=== PATIENT | male | born 1955 ===

== ENCOUNTER 2018-01-09 01:55 | Emergency (ER) | payer BC ==
[2018-01-09 02:12] VITALS: BP 131/82; PULSE 75; RESP 16; TEMP 98.1; O2SAT 100
[2018-01-09] MEDS ORDERED: Sodium Chloride 0.9% 500 ML IV STA (03:00)
--- NOTE | 2018-01-09 03:32 | ED PDOC ---
HPI: Abdomen Time Seen by Provider: 01/09/18 02:15 Chief Complaint (Nursing): Abdominal Pain History Per: Patient History/Exam Limitations: no limitations Onset/Duration Of Symptoms: Days (x 4) Current Symptoms Are (Timing): Still Present Additional Complaint(s): 62-year-old male presents to ED complaining of abdominal pain for 4 days. Describes pain as intermittent with no alleviating or exacerbating factors. Patient states he had an endoscopy on December 09, which showed chronic gastritis and esophagitis. Patient reports he was tested for H. pylori, but tested (-). States endoscopy ordered initially by ENT doctor for throat discomfort since Pt has been having for few months. Endoscopy was normal by ENT doctor. States he did 3 different course of antibiotics with no improvement. Pt was recommended to obtain outpatient CT of heck neck, but patient has not done it yet. Pt reports GI doctor recommends obtaining CT of the [place] since Endoscopy did not yield any findings that could contribute to throat discomfort. Pt reports he does not suffer from prior abdominal conditions. Reports episode of vomiting tonight. Otherwise: (-) urinary symptoms, (-) diarrhea, (-) fever, (-) melena, (-) hematochezia. PMD: [facility] Past Medical History Reviewed: Historical Data, Nursing Documentation, Vital Signs Vital Signs: Last Vital Signs Temp 98.1 F 01/09/18 02:07 Pulse 75 01/09/18 02:07 Resp 16 01/09/18 02:07 BP 131/82 01/09/18 02:07 Pulse Ox 100 01/09/18 03:42 - Medical History PMH: No Chronic Diseases - Surgical History Surgical History: No Surg Hx - Family History Family History: States: Unknown Family Hx - Allergies Allergies/Adverse Reactions: Allergies Allergy/AdvReac Type Severity Reaction Status Date / Time No Known Allergies Allergy Verified 01/09/18 02:12 Review of Systems ROS Statement: Except As Marked, All Systems Reviewed And Found Negative Constitutional: Negative for: Fever ENT: Positive for: Other (Throat discomfort) Gastrointestinal: Positive for: Vomiting, Abdominal Pain. Negative for: Diarrhea, Melena, Hematochezia Genitourinary Male: Negative for: Dysuria, Hematuria Physical Exam - Reviewed Nursing Documentation Reviewed: Yes Vital Signs Reviewed: Yes - Physical Exam Comments: GENERAL APPEARANCE: Patient is awake, alert, oriented x 3, in mild painful distress. SKIN: Warm, dry; (-) cyanosis. EYES: (-) conjunctival pallor, (-) scleral icterus. ENMT: Mucous membranes are moist. NECK: (-) tenderness, (-) stiffness, (-) lymphadenopathy. CHEST AND RESPIRATORY: (-) rales, (-) rhonchi, (-) wheezes; breath sounds equal bilaterally. HEART AND CARDIOVASCULAR: (-) irregularity; (-) murmur, (-) gallop. ABDOMEN AND GI: (-) distention. Bowel sounds active; (-) tenderness, (-) guarding, (-) rebound, (-) palpable masses, (-) CVA tenderness. EXTREMITIES: (-) deformity, (-) edema, (+) distal pulses. NEURO AND PSYCH: Mental status as above; (-) focal findings. - Laboratory Results Result Diagrams: 01/09/18 03:44 01/09/18 03:44 - ECG O2 Sat by Pulse Oximetry: 100 (RA) Pulse Ox Interpretation: Normal Medical Decision Making Medical Decision Making: Time: 03:00 Plan: - CT Abd Pelvic PO and IV Contrast - CT Neck Soft Tissue with Contrast - CMP - Lipase - cbc (with differentials) - Famotidine 20 mg IVP - Sodium Chloride 0.9% 500 ml IV 500 mls/hr - UA Labs reviewed : wnl. On re-evaluation, patient laying in bed comfortably, is awaiting CT. Patient went to CT and returned without any incident. CT results still pending at this time. ----- Scribe Attestation: Documented by Apollo Canela, acting as a scribe for JOE Topete. Provider Scribe Attestation: All medical record entries made by the Scribe were at my direction and personally dictated by me. I have reviewed the chart and agree that the record accurately reflects my personal performance of the history, physical exam, medical decision making, and the department course for this patient. I have also personally directed, reviewed, and agree with the discharge instructions and disposition. Disposition - Clinical Impression Clinical Impression: Cholelithiasis, Abdominal pain - Disposition Disposition Time: 06:00 Condition: STABLE Additional Instructions: Please follow up with your Cash Specialist in 1-2 days Instructions: Gallstones Forms: [facility] (Japanese) Print Language: NIGERIEN
[2018-01-09] MEDS ORDERED: Iohexol 240 (50 ml) ONE (03:34)
[2018-01-09 03:49] LABS: BASO % 0.1 % (0.0-2.0); EOS # 0.1 K/uL (0.0-0.7); EOS % 0.8 % (0.0-4.0); HEMOGLOBIN 13.5 g/dL (12.0-18.0); LYMPH # 1.2 K/uL (1.0-4.3); LYMPH % 13.2 % (20.0-40.0); MEAN CELL VOLUME 56.6 fl (80.0-94.0); MEAN CORPUSCULAR HEMOGLOBIN 18.6 pg (27.0-31.0); MEAN CORPUSCULAR HGB CONC 32.9 g/dL (33.0-37.0); MEAN PLATELET VOLUME 8.7 fl (7.2-11.7); MONO # 0.7 K/uL (0.0-0.8); MONO % 7.4 % (0.0-10.0); NEUT # 7.4 K/uL (1.8-7.0); NEUT % 78.5 % (50.0-75.0); NRBC % 0.2 % (0.0-0.0); RBC 7.25 Mil/uL (4.40-5.90); WHITE BLOOD COUNT 9.4 K/uL (4.8-10.8)
[2018-01-09 03:53] LABS: URINE BILIRUBIN NEGATIVE (NEGATIVE); URINE BLOOD NEGATIVE (NEGATIVE); URINE CLARITY CLEAR (Clear); URINE COLOR STRAW (YELLOW); URINE GLUCOSE (UA) NEG (Normal); URINE LEUKOCYTE ESTERASE NEG Leu/uL (Negative); URINE PROTEIN NEGATIVE (NEGATIVE); URINE UROBILINOGEN 0.2-1.0 mg/dL (0.2-1.0)
[2018-01-09 03:57] LABS: ALB/GLOB RATIO 1.4 (1.0-2.1); ALBUMIN 4.2 g/dL (3.5-5.0); ALT/SGPT 65 U/L (21-72); AST/SGOT 31 U/L (17-59); BLOOD UREA NITROGEN 19 mg/dl (9-20); CALCIUM 9.6 mg/dL (8.4-10.2); GFR AFRICAN-AMERICAN > 60; GFR NON-AFRICAN AMERICAN > 60; LIPASE 156 U/L (23-300)
[2018-01-09] MEDS ORDERED: Iohexol 300 100 ML IJ ONE (05:28)
[2018-01-09] MEDS ORDERED: Sodium Chloride 0.9% 50 ML IV ONE (05:28)
--- NOTE | 2018-01-09 06:33 | CT ---
EXAM: CT Abdomen and Pelvis With Intravenous Contrast CLINICAL HISTORY: 62 years old, male; Signs and symptoms; Other: Gastritis; Additional info: Mid abd pain, h/o gastritis TECHNIQUE: Axial computed tomography images of the abdomen and pelvis with intravenous contrast. All CT scans at this facility use one or more dose reduction techniques, viz.: automated exposure control; ma/kV adjustment per patient size (including targeted exams where dose is matched to indication; i.e. head); or iterative reconstruction technique. Coronal and sagittal reformatted images were created and reviewed. CONTRAST: 65 mL of omnipaque 300 administered intravenously. COMPARISON: No relevant prior studies available. FINDINGS: Lung bases: There is minimal bibasilar atelectasis. ABDOMEN: Liver: Unremarkable. No mass. Gallbladder and bile ducts: There are tiny calcified gallstones are present. No ductal dilation. Pancreas: Unremarkable. No mass. No ductal dilation. Spleen: Unremarkable. No splenomegaly. Adrenals: Unremarkable. No mass. Kidneys and ureters: Unremarkable. No solid mass. No hydronephrosis. Stomach and bowel: Unremarkable. The stomach is nondistended and unremarkable. No obstruction. No mucosal thickening. There is no wall thickening or pericolonic stranding to suggest colitis. PELVIS: Appendix: A normal appendix is identified. Bladder: Unremarkable. No mass. Reproductive: Unremarkable as visualized. ABDOMEN and PELVIS: Intraperitoneal space: Unremarkable. No free air. No significant fluid collection. Bones/joints: No acute fracture. No dislocation. Soft tissues: Unremarkable. Vasculature: The aorta demonstrates mild atherosclerotic calcification. No abdominal aortic aneurysm. Lymph nodes: Unremarkable. No enlarged lymph nodes. IMPRESSION: No evidence of an acute intra-abdominal or pelvic abnormality. Cholelithiasis.
--- NOTE | 2018-01-09 07:02 | CT ---
EXAM: CT Neck With Intravenous Contrast CLINICAL HISTORY: 62 years old, male; Signs and symptoms; Other: Sore thooat; Additional info: Sore throat several months TECHNIQUE: Axial computed tomography images of the neck with intravenous contrast. All CT scans at this facility use one or more dose reduction techniques, viz.: automated exposure control; ma/kV adjustment per patient size (including targeted exams where dose is matched to indication; i.e. head); or iterative reconstruction technique. Coronal and sagittal reformatted images were created and reviewed. CONTRAST: 35 mL of [id number] administered intravenously. COMPARISON: No relevant prior studies available. FINDINGS: Oropharynx: Unremarkable. No significant tonsillar enlargement. No peritonsillar abscess. Hypopharynx: Unremarkable. Larynx: Unremarkable. Normal epiglottis. Trachea: Unremarkable. Retropharyngeal space: Unremarkable. Submandibular/parotid glands: Unremarkable. Glands are normal in size. Thyroid: Unremarkable. No enlarged or calcified nodules. Bones/joints: No acute fracture. Soft tissues: Unremarkable. Vasculature: No acute findings. Lymph nodes: Unremarkable. No lymphadenopathy. Lung apices: Unremarkable as visualized. IMPRESSION: No acute findings.
== END 2018-01-09 07:11 | disposition home or self-care (01) ==
LOC: H.ER 01:55
DX: K80.20 Calculus of gallbladder without cholecystitis without obstruction (principal); K29.70 Gastritis, unspecified, without bleeding
CPT/HCPCS: 70491; 74177; 80053; 81003; 83690; 85025; 96374; 99283; J7040; Q9967

== ENCOUNTER 2018-12-26 22:21 | Emergency (ER) | payer BC ==
[2018-12-26 22:35] VITALS: RESP 18
[2018-12-26] MEDS ORDERED: Sodium Chloride 0.9% 1,000 ML IV STA (22:41)
[2018-12-26 23:15] LABS: BASO % 0.3 % (0.0-2.0); EOS # 0.1 K/uL (0.0-0.7); EOS % 1.9 % (0.0-4.0); HEMOGLOBIN 13.5 g/dL (12.0-18.0); LYMPH % 40.1 % (20.0-40.0); MEAN CELL VOLUME 57.1 fl (80.0-94.0); MEAN CORPUSCULAR HEMOGLOBIN 18.3 pg (27.0-31.0); MEAN PLATELET VOLUME 8.6 fl (7.2-11.7); MONO # 0.4 K/uL (0.0-0.8); MONO % 8.8 % (0.0-10.0); NEUT # 2.4 K/uL (1.8-7.0); NEUT % 48.9 % (50.0-75.0); NRBC % 0.3 % (0.0-0.0); RBC 7.37 Mil/uL (4.40-5.90); RED CELL DISTRIBUTION WIDTH 16.6 % (11.5-14.5); WHITE BLOOD COUNT 4.9 K/uL (4.8-10.8)
[2018-12-26 23:24] LABS: ALB/GLOB RATIO 1.6 (1.0-2.1); ALBUMIN 4.8 g/dL (3.5-5.0); ALT/SGPT 30 U/L (21-72); AST/SGOT 22 U/L (17-59); BLOOD UREA NITROGEN 21 mg/dl (9-20); CALCIUM 10.2 mg/dL (8.4-10.2); GFR NON-AFRICAN AMERICAN > 60; LIPASE 144 U/L (23-300)
--- NOTE | 2018-12-26 23:55 | ED PDOC ---
HPI: Abdomen Time Seen by Provider: 12/26/18 22:38 Chief Complaint (Nursing): Abdominal Pain Chief Complaint (Provider): Abdominal Pain History Per: Patient History/Exam Limitations: no limitations Onset/Duration Of Symptoms: Days (x 3) Current Symptoms Are (Timing): Still Present Location Of Pain/Discomfort: Epigastric Quality Of Discomfort: "Pain" Associated Symptoms: Nausea Additional Complaint(s): 63 year old male with a history of GERD presents to the ED for evaluation of abdominal pain associated with nausea for three days. Patient reports pain has become progressively worse and is located mostly in the epigastric region and upper abdomen. He took Motrin without relief. Denies vomiting, fever, shortness of breath and chest pain. PMD: none provided Past Medical History Reviewed: Historical Data Vital Signs: Last Vital Signs Temp 98.0 F 12/26/18 22:35 Pulse 67 12/26/18 22:35 Resp 18 12/26/18 22:35 BP 148/78 12/26/18 22:35 Pulse Ox 98 12/26/18 22:35 Primary Care Provider: Non [facility] Provider, - Medical History PMH: Gastritis, Hyperlipidemia - Surgical History Surgical History: Hernia Repair Other surgeries: left knee surgery - Family History Family History: States: Unknown Family Hx - Social History Current smoker - smoking cessation education provided: No Alcohol: None Drugs: Denies - Home Medications Home Medications: Ambulatory Orders Medication Instructions Recorded Esomeprazole Magnesium [Nexium] 20 mg PO QAM #14 ecc 12/27/18 - Allergies Allergies/Adverse Reactions: Allergies Allergy/AdvReac Type Severity Reaction Status Date / Time No Known Allergies Allergy Verified 12/26/18 22:35 Review of Systems ROS Statement: Except As Marked, All Systems Reviewed And Found Negative Constitutional: Negative for: Fever, Chills Cardiovascular: Negative for: Chest Pain Respiratory: Negative for: Shortness of Breath Gastrointestinal: Positive for: Nausea, Abdominal Pain. Negative for: Vomiting Physical Exam - Reviewed Nursing Documentation Reviewed: Yes Vital Signs Reviewed: Yes - Physical Exam Appears: Positive for: No Acute Distress Head Exam: Positive for: ATRAUMATIC, NORMAL INSPECTION, NORMOCEPHALIC Skin: Positive for: Normal Color, Warm, Dry Eye Exam: Positive for: EOMI, Normal appearance, PERRL Neck: Positive for: Normal, Painless ROM, Supple Cardiovascular/Chest: Positive for: Regular Rate, Rhythm. Negative for: Murmur Respiratory: Positive for: Normal Breath Sounds. Negative for: Respiratory Distress Gastrointestinal/Abdominal: Positive for: Tenderness (mild epigastric ). Negative for: Mass, Guarding Back: Positive for: Normal Inspection. Negative for: L CVA Tenderness, R CVA Tenderness Extremity: Positive for: Normal ROM (x 4). Negative for: Deformity Neurological/Psych: Positive for: Awake, Alert, Normal Tone, Oriented (x 3). Negative for: Motor/Sensory Deficits - Laboratory Results Result Diagrams: 12/26/18 23:12 12/26/18 23:12 Lab Results: Total Bilirubin 1.5 mg/dl (0.2-1.3) H 12/26/18 23:12 AST 22 U/L (17-59) 12/26/18 23:12 ALT 30 U/L (21-72) 12/26/18 23:12 Alkaline Phosphatase 83 U/L (38-126) 12/26/18 23:12 Total Protein 7.8 G/DL (6.3-8.2) 12/26/18 23:12 Albumin 4.8 g/dL (3.5-5.0) 12/26/18 23:12 Globulin 3.0 gm/dL (2.2-3.9) 12/26/18 23:12 Albumin/Globulin Ratio 1.6 (1.0-2.1) 12/26/18 23:12 Lipase 144 U/L (23-300) 12/26/18 23:12 - ECG O2 Sat by Pulse Oximetry: 98 (RA) Pulse Ox Interpretation: Normal Medical Decision Making Medical Decision Makin:40 Impression: 63 year old male with abdominal pain Initial Plan: --CMP --CBC --Lipase --Urine preg --Urine dip --NS IV 1,000 mls --Pepcid 20 mg IVP --Toradol 30 mg IV 02:21 Gallbladder US Findings: Liver measures 15.3 cm. Cholelithiasis. Diffuse thickening of the gallbladder is probably secondary to underdistention. Normal pancreas. Unremarkable IVC. Nonaneurysmal aorta. Unremarkable spleen. Nondilated common bile duct measuring 2.9 mm. Impression: Cholelithiasis. Diffuse thickening and is probably secondary to underdistention. 03:52 Patient reports improvement of symptoms at this time and is stable for discharge. Diagnosis is cholelithiasis. Referral provided for surgical intervention. Scribe Attestation: Documented by Gabriela Patel, acting as a scribe Mark Graves MD Provider Scribe Attestation: All medical record entries made by the Scribe were at my direction and personally dictated by me. I have reviewed the chart and agree that the record accurately reflects my personal performance of the history, physical exam, medical decision making, and the department course for this patient. I have also personally directed, reviewed, and agree with the discharge instructions and disposition Disposition - Clinical Impression Clinical Impression: Cholelithiasis - Patient ED Disposition Is Patient to be Admitted: No - Disposition Referrals: Kishore Jeffrey MD [Staff Provider] - Disposition: Routine/Home Disposition Time: 03:52 Condition: STABLE Prescriptions: Esomeprazole Magnesium [Nexium] 20 mg PO QAM #14 ecc Instructions: Gallstones Forms: [facility] (Serbian) Print Language: VATICAN CITIZEN
[2018-12-27 00:32] VITALS: PULSE 59
[2018-12-27 04:07] VITALS: BP 126/72; TEMP 97.5; O2SAT 99
--- NOTE | 2018-12-27 10:52 | US ---
Date of service: 12/27/2018 HISTORY: epigastric pain COMPARISON: None. TECHNIQUE: Sonographic evaluation of the right upper quadrant of the abdomen. FINDINGS: LIVER: Measures 15.3 cm in length. Normal echogenicity of the liver parenchyma. No mass. No intrahepatic bile duct dilatation. GALLBLADDER: The gallbladder is contracted due to nonfasting status. There are small gallstones. No pericholecystic fluid. The sonographic Loyola's sign is negative COMMON BILE DUCT: Measures 2.9 mm. No stones. No dilatation. PANCREAS: Unremarkable as visualized. No mass. No ductal dilatation. RIGHT KIDNEY: Measures 11.0 cm in length. Normal echogenicity. No calculus, mass, or hydronephrosis. AORTA: No aneurysmal dilatation. IVC: Unremarkable. OTHER FINDINGS: None . IMPRESSION: Gallbladder is contracted due to nonfasting status. Small gallstones. A preliminary report was provided by [facility].
== END 2018-12-27 04:00 | disposition home or self-care (01) ==
LOC: H.ER 22:21
DX: K80.20 Calculus of gallbladder without cholecystitis without obstruction (principal); E78.5 Hyperlipidemia, unspecified; Z79.899 Other long term (current) drug therapy
CPT/HCPCS: 76705; 80053; 83690; 85025; 96360; 99284; J1885; J7030